=== PATIENT | female | born 1985 | race Caucasian/White ===

== ENCOUNTER → 2016-06-16 | Outpatient (REF) | payer BC | LOC: LAB 16:57 | PROVIDERS: ATTEND Obstetrics & Gynecology | DX: Z33.1 Pregnant state, incidental (principal) | CPT/HCPCS: 87653 ==

== ENCOUNTER 2016-07-05 10:44 | Inpatient (IN) | payer BC ==
[2016-07-05] VITALS (9 sets, daily range): BP systolic 104–123; BP diastolic 57–73
[~2016-07-05] VITALS: Ht 172.7 cm; Wt 77.2 kg
--- NOTE | 2016-07-05 13:22 | Progress Note (E) ---
Progress Note Came in due to contractions getting stronger since 299 today. No LOF, normal FM. F?HR reactive, 135, reassuring. Contractions q2-5 minutes, moderate. VE 4cm, ballotable vertex. No change after 1 hour. We will monitor in observation on intermittent monitoring for now, recheck a little later this afternoon. Likely early labor, just awaiting cervical change to confirm. GBS-. HUGO CASTELLANOS MD Jul 05, 2016 13:22
[2016-07-05] MEDS ORDERED: OXYTOCIN INJ 20 UNIT in NS 1000ml 1,000 ML IV PRN ×2 (15:30→15:45)
[2016-07-05] MEDS ORDERED: CALCIUM CARBONATE CHEWABLE 300 MG (TUMS) TABLET PO PRN ×2 (15:30→15:45)
--- NOTE | 2016-07-05 15:37 | History and Physical (E) ---
History & Physical (OB) Subjective: CC:Contractions HPI: 31 y/o at 38+2 WGA with contractions all day, now making slow cervical change, 5.5cm. She reports +FM, -LOF/VB. GBS-. PNC:Transfer to Dr. Castellanos after Care by Dr. Arellano in early . OB Hx: x2 at term without complications. PMHx:None PSHx:WTE 2001 Allergies: Coded Allergies: No Known Drug Allergies (Unverified , 07/05/16) Objective: Vital Signs Date Time Temp Pulse Resp B/P Pulse Ox O2 Delivery O2 Flow Rate FiO2 07/05/16 14:45 07/05/16 14:00 73 07/05/16 11:30 98.5 General: Alert and oriented, NAD Chest: CTA Abdomen: Gravid Cardiovasular: RRR, No murmur Extremities: No edema FHT's:135, reactive, reassuring, no decelerations. Cx:5.5/80/-2, VTX, bulging bag [place]:CTX q 2-3 minutes, moderate Screenings: Blood type: A Positive, Rubella Immune, RPR non-reactive, HBV Negative, HIV Negative , GBS Negative. Problems/Plans: (1) with 38 completed weeks gestation (2) Uterine contractions Admitted for term labor. GBS-. History of 4000g infants with fast deliveries. We will admit, prepare for vaginal delivery, likely AROM when admitted. Additional Copies to: End of Report . HUGO CASTELLANOS MD Jul 05, 2016 15:37
--- OUTSIDE RECORDS SUMMARY | 2016-07-05 15:50 | XMS REPORT | Continuity of Care Document ---
Author Author [facility] Organization [facility] Address Unknown Phone Unavailable Allergies Medications Problems Date Dx Coded Attending Type Code Diagnosis Diagnosed By 06/13/2012 Emma Chatterjee MD 664.11 DEL W 2 DEG LACERAT-DEL 06/13/2012 Emma Chatterjee MD V22.1 SUPERVIS OTH NORMAL PREG 06/13/2012 Emma Chatterjee MD V27.0 DELIVER-SINGLE LIVEBORN Procedures Code Description Performed By Performed On 73.09 ARTIF RUPT [employer]ES Emma Zambrano MD 06/13/2012 75.69 REPAIR OB LACERATION NEC Emma Chatterjee MD 06/13/2012 Results Test Result Range CBC - 06/13/12 20:18 MEAN CELL HGB 30.6 pg 27.0-33.0 MEAN CELL HGB CONCENTRATION 33.3 g/dL 32.0-37.0 MEAN CELL VOLUME 91.8 fl 80.0-100.0 RED BLOOD CELL 4.25 m/cumm 4.00-6.00 RED CELL DISTRIBUTION WIDTH 13.8 % 11.0- 15.6 WHITE BLOOD CELL 9.8 k/cumm 5.0-10.0 HEMOGLOBIN 13.0 gm/dL 12.0-16.0 HEMATOCRIT 39.0 % 37.0-47.0 PLATELET COUNT 132 k/cumm 150-400 Encounters ACCT No. Visit Date/Time Discharge Status Pt. Type Provider Facility Loc./Unit Complaint [id number] 06/13/2012 18:12:00 2012 13:30:00 [id number] 02/01/2012 15:09:00 2011 15:09:00 DIS Outpatient Emma Chatterjee MD [facility] [place] [id number] 10/25/2011 11:09:00 2011 11:09:00 DIS Outpatient Shena WHITE, [facility] [place]
[2016-07-05 16:02] LABS: MEAN CORPUSCULAR HGB CONC 34.9 g/dL (31.0-37.0); WHITE BLOOD COUNT 10.26 10^3uL (4.0-11.0)
[2016-07-05 16:07] LABS: MEAN CORPUSCULAR HEMOGLOBIN 31.9 PG (26.0-34.0)
--- NOTE | 2016-07-05 18:23 | Progress Note (E) ---
Progress Note Doing well. VE now 7/100/-1, but forebag present. AROM clear fluid. FHR reactive, reassuring, CTX q 2-4 minutes, strong. HUGO CASTELLANOS MD Jul 05, 2016 18:23
[2016-07-05] MEDS ORDERED: LIDOCAINE 1% (XYLOCAINE) 20 ML VIAL ONE (19:19)
[2016-07-05] MEDS ORDERED: LANOLIN OINTMENT 28 GM TUBE TOP PRN (19:35)
[2016-07-05] MEDS ORDERED: M-M-R II (MEASLES,MUMPS,RUBELLA) VACCINE SC SCH (19:35)
[2016-07-05] MEDS ORDERED: HYDROcodone/APAP 5 MG/325 MG (NORCO) TAB PO PRN (19:35)
--- NOTE | 2016-07-05 19:38 | Vaginal Delivery Summary (E) ---
Vaginal Delivery Summary At 11:00 on 07/05/16 this 31 year old G 3 now P3 presented to the Labor and Delivery Unit at 38.2 weeks gestation. The patient presented for care in first trimester and ultrasound at that time confirmed dates. This complications: None Maternal labs: Blood type: A Positive, Rubella Immune, RPR non-reactive, HBV Negative, HIV Negative , GBS Negative. Tdap booster received on 2015. She presented for Contractions at term . At presentation, she was 4 cm dilated. On 07/05/16 at 18:17, AROM was performed by Nilson with Clear fluid returned. of Vertex 8' 7" vigorous viable female. Intact placenta delivered. 1st degree perineal laceration repaired under 1%lidocaine with 3-0 Vicryl. EBL 150cc, no complications. HUGO CASTELLANOS MD Jul 05, 2016 19:38
[2016-07-05] MEDS ORDERED: DOCUSATE SODIUM 100 MG (COLACE) CAP PO SCH (21:00)
[2016-07-06] MEDS: IBUPROFEN 600 MG (MOTRIN) TAB PO PRN ×3 (00:48→19:45)
[2016-07-06 08:02] LABS: MEAN CORPUSCULAR HGB CONC 35.1 g/dL (31.0-37.0); MEAN PLATELET VOLUME 10.8 FL (6.0-9.5); WHITE BLOOD COUNT 10.99 10^3uL (4.0-11.0)
[2016-07-06 08:06] LABS: MEAN CORPUSCULAR HEMOGLOBIN 32.3 PG (26.0-34.0)
[2016-07-06 08:30] VITALS: BP 98/60
[2016-07-06] MEDS ORDERED: HYDR-3702 PO (13:11)
--- NOTE | 2016-07-06 13:14 | Discharge Summary (E) ---
OB Discharge Summary Admit Date/Time Jul 05, 2016 at 15:38 Discharge Date/Time 07/06/16 Admitting Provider Hugo Castellanos MD Primary Care Provider Antonella Porter MD Attending Provider Hugo Castellanos MD Consulting Provider Procedures 07/05/16 without complication. Admission Diagnosis Active labor at term History and Present Illness See History and Physical for complete details. Hospital Course and Treatment uncomplicated labor, delivery and care. Discharge Physicial Exam General Alert and oriented, NAD Abdomen Soft, non-distended, fundus firm Extremities No edema Cardiovascular: RRR, No murmur Laboratory Results Past 24 Hrs 07/05/16 15:50: Hematocrit 37.00, Hemoglobin 12.9, Mean Corpuscular Hemoglobin 31.9, Mean Corpuscular Hemoglobin Concent 34.9, Mean Corpuscular Volume 92, Mean Platelet Volume 11.0, Platelet Count 123, Red Blood Count 4.04, Red Cell Distribution Width 13.6, White Blood Count 10.26 07/06/16 07:10: Hematocrit 34.50, Hemoglobin 12.1, Mean Corpuscular Hemoglobin 32.3, Mean Corpuscular Hemoglobin Concent 35.1, Mean Corpuscular Volume 92, Mean Platelet Volume 10.8, Platelet Count 132, Red Blood Count 3.75, Red Cell Distribution Width 13.5, White Blood Count 10.99 Discharge Disposition Home Instructions Nothing PV 6 weeks. No lifting >20 lbs for 2 weeks. Call with severe bleeding , pain or fevers. Diet regular Discharge Medications New Medications: Hydrocodone/Acetaminophen ([place] 5mg/325mg) 1 Each Tablet 1-2 TAB PO Q6H PRN PAIN #20 Ref 0 TAB Discharge Diagnosis Problems/Plans: (1) with 38 completed weeks gestation (2) Uterine contractions Comment Doing well PPD#1. Discharge home, precautions reviewed. F/U 6 weeks. Copies to: End of Report . HUGO CASTELLANOS MD Jul 06, 2016 13:14
== END 2016-07-06 20:10 | disposition home or self-care (01) | DRG 775 ==
LOC: EUOP 10:44 → OB 10:45 → EUOP 15:38 → OB 15:38
PROVIDERS: ADMIT Obstetrics & Gynecology; ATTEND Obstetrics & Gynecology
PROC: 10E0XZZ Delivery of Products of Conception, External Approach (ICD-10-PCS; principal; 2016-07-05)
PROC: 0HQ9XZZ Repair Perineum Skin, External Approach (ICD-10-PCS; 2016-07-05)
DX: O70.0 First degree perineal laceration during delivery (principal); Z3A.38 38 weeks gestation of pregnancy; Z37.0 Single live birth
CPT/HCPCS: 36415; 85027; 86850; 86900; 86901; 99204